=== PATIENT | male | born 1975 | race Caucasian/White ===

== ENCOUNTER → 2020-03-11 | Outpatient (CLI) | payer OTHER ==
[~2020-03-11] MED LIST: IOHEXOL 350 MG/ML 100 ML VIAL. IV ONE
--- NOTE | 2020-03-11 11:58 | RAD ---
EXAM: Carotid Doppler sonogram. HISTORY: Syncope. Collapse. Nausea and dizziness when turning head. TECHNIQUE: Zhang scale and color Doppler sonographic evaluation of the neck with spectral waveform jess lysis was performed and static images are submitted for review. FINDINGS: There is a linear filling defect within the right common carotid artery which extends to th e innominate artery, possibly due to a dissection flap or elongated mobile thrombus. The peak systoli c velocity within the right common carotid artery is 119 cm/sec. The peak systolic velocity within th e right internal carotid artery is 63 cm/sec and the end diastolic velocity within the right internal carotid artery is 28 cm/sec. The right ICA/CCA ratio is 0.67. The peak systolic velocity within the left common carotid artery is 152 cm/sec. The peak systolic naun ocity within the left internal carotid artery is 61 cm/sec and the end diastolic velocity within the left internal carotid artery is 26 cm/sec. The left ICA/CCA ratio is 0.60. There is normal antegrade flow within both vertebral arteries. IMPRESSION: 1. Linear filling defect within the right common carotid artery which extends to the innominate arter y, concerning for a dissection flap or mobile thrombus. CT angiogram of the head and neck is recommen ded for characterization. 2. No Doppler evidence of greater than 50 percent stenosis involving the internal carotid arteries Findings were discussed with Whitney, the nurse for the referring physician, at 1140 hours on 03/11/2020. The patient is instructed to proceed to the CT suite for further imaging. PQRS Compliance Statement - Stenosis calculations for CT, MR and conventional angiography are based u kyaw measurement of the distal ICA diameter in accordance with the NASCET methodology. Stenosis calcu lations for carotid ultrasound studies are derived from validated velocity criteria which are known t o correlate with the NASCET methodology. Electronically signed by: Juanita Mendoza MD (03/11/2020 11:56 AM) [id number]
--- NOTE | 2020-03-11 13:35 | RAD ---
EXAM: CT angiogram of the head and neck with intravenous contrast. HISTORY: Abnormal carotid Doppler sonogram. Possible dissection. TECHNIQUE: Computed tomographic images of the head and neck were obtained following the administratio n of intravenous contrast. 3-dimensional maximum intensity projection images were obtained. *One or more of the following individualized dose reduction techniques were utilized for this examina tion: 1. Automated exposure control. 2. Adjustment of the mA and/or kV according to patient size. 3. Use of iterative reconstruction technique. COMPARISON: Carotid Doppler sonogram obtained on the same date. FINDINGS: There is a normal caliber aortic arch. The aortic arch great vessels are widely patent. The re is slight linear hypodensity within the origin of the right common carotid artery due to artifact. This is not seen on reconstructed images. No convincing dissection is seen. The carotid bifurcations are widely patent. The right vertebral artery is widely patent. There is a hypoplastic left vertebra l artery. The origin and proximal aspect of the left vertebral artery is not well seen due to adjacent dense co ntrast in this location. The left vertebral artery terminates as the posterior inferior cerebellar ar jadon, a normal variant. The cerebral arteries are widely patent. There is a prominent right posterior communicating artery with hypoplastic P1 segment or right posterior cerebral artery. The left posterior communicating artery and anterior communicating artery are both patent. The basilar artery is widely patent. There is no mass effect or midline shift. There is no hydrocephalus. The tolentino-white matter differenti ation pattern is intact. There is no aneurysm or suspicious enhancing lesion. The orbits are unremark able. There is a tiny left maxillary sinus mucous retention cyst. The mastoid air cells are clear. Th ere is no neck lymphadenopathy. The lung apices are unremarkable. There is no suspicious osseous lesi on. There is no severe cervical foraminal or central canal stenosis. IMPRESSION: 1. No convincing for CT angiographic correlate for abnormality within the right common carotid artery demonstrated on the recent Doppler exam, favoring sonographic artifact. The common carotid arteries and carotid bifurcations are widely patent. 2. Dominant right vertebral artery and hypoplastic left vertebral artery which terminates as the left posterior inferior cerebral artery, a normal variant. The origin and proximal left vertebral artery is obscured due to small size and adjacent dense venous contrast. PQRS Compliance Statement - Stenosis calculations for CT, MR and conventional angiography are based u kyaw measurement of the distal ICA diameter in accordance with the NASCET methodology. Stenosis calcu lations for carotid ultrasound studies are derived from validated velocity criteria which are known t o correlate with the NASCET methodology. Electronically signed by: Juanita Mendoza MD (03/11/2020 1:32 PM) [id number]
== END ==
LOC: US 10:57 → EDSEX 10:57
PROVIDERS: ATTEND Otolaryngology
DX: I77.71 Dissection of carotid artery (principal); R55 Syncope and collapse
CPT/HCPCS: 70496; 70498; 93880; Q9967